=== PATIENT | female | born 1980 | race Caucasian/White ===

== ENCOUNTER 2020-03-29 10:46 | Emergency (ER) | payer BC, MEDICAID ==
[~2020-03-29] VITALS: Ht 160 cm; Wt 72.1 kg
[2020-03-29 10:58] VITALS: BP_SYST 124
[2020-03-29] MEDS ORDERED: DIPH-TET-PERTUS Vaccine 0.5 ML VIAL (ADACEL) I.M. ONE (11:15)
[2020-03-29] MEDS ORDERED: AMOXICILLIN/CLAVULANATE POTASSIUM 875 MG TABLET PO ONE (11:15)
[2020-03-29] MEDS ORDERED: HYDROcodone/ACETAMIN 5-325 MG TAB (NORCO/ VICODIN) PO ONE (11:15)
[2020-03-29] MEDS ORDERED: LIDOCAINE 1% 10 MG/ML, 20 ML MDV INJ ONE (11:30)
[2020-03-29] MEDS ORDERED: BACITRACIN/POLYMYXIN B SULFATE 30 GM TOPICAL OINT. TP SCH (11:45)
[2020-03-29] MEDS ORDERED: BACITRACIN/POLYMYXIN B SULFATE 30 GM TOPICAL OINT. TP ONE (12:00)
[2020-03-29 12:01] VITALS: BP_SYST 124
[2020-03-29] MEDS ORDERED: BACITRACIN 1 GM OINT TP ONE (12:13)
[2020-03-30] MEDS ORDERED: BACITRACIN/POLYMYXIN B SULFATE 30 GM TOPICAL OINT. TP SCH (09:00)
== END 2020-03-29 12:02 | disposition home or self-care (01) ==
LOC: SED 10:46
DX: S01.111A Laceration without foreign body of right eyelid and periocular area, initial encounter (principal); W54.0XXA Bitten by dog, initial encounter; Y93.89 Activity, other specified; Y92.89 Other specified places as the place of occurrence of the external cause; Y99.8 Other external cause status
CPT/HCPCS: 12011; 90471; 90715; 99283; J2001

== ENCOUNTER 2020-10-24 13:18 | Emergency (ER) | payer BC ==
[~2020-10-24] VITALS: Ht 160 cm; Wt 74.8 kg
[2020-10-24 13:37] VITALS: BP_SYST 131
[2020-10-24 15:00] VITALS: BP_SYST 128
== END 2020-10-24 15:00 | disposition home or self-care (01) ==
LOC: SED 13:18
DX: M79.662 Pain in left lower leg (principal)
CPT/HCPCS: 93971; 99284

== ENCOUNTER 2022-04-18 16:05 | Emergency (ER) | payer BC ==
[~2022-04-18] VITALS: Ht 160 cm; Wt 74.8 kg
[2022-04-18 16:16] VITALS: BP_SYST 127
[2022-04-18] MEDS ORDERED: ONDANSETRON HCL 4 MG/2 ML VIAL IVP ONE (17:30)
[2022-04-18] MEDS ORDERED: NACL 0.9% 1,000 ML IV ONE (17:30)
[2022-04-18] MEDS ORDERED: MORPHINE 4 MG INJ. 4 MG/ML VIAL IVP ONE (17:30)
[2022-04-18 18:01] LABS: BASOPHILS # (AUTO) 0.1 K/uL (0.0-0.2); BASOPHILS % (AUTO) 0.5 % (0.0-2.0); EOSINOPHILS # (AUTO) 0.1 K/uL (0.0-0.4); EOSINOPHILS % (AUTO) 0.8 % (0.0-4.0); HEMOGLOBIN 14.3 g/dL (12.0-16.0); LYMPHOCYTES # (AUTO) 1.7 K/uL (1.0-5.5); LYMPHOCYTES % (AUTO) 16.9 % (20.5-51.5); MEAN CORPUSCULAR HEMOGLOBIN 32 pg (27-31); MEAN CORPUSCULAR HGB CONC 35 % (32-36); MEAN CORPUSCULAR VOLUME 92 fL (79.0-98.0); MONOCYTES # (AUTO) 0.5 K/uL (0.0-1.0); MONOCYTES % (AUTO) 4.9 % (1.7-9.3); NEUTROPHILS # (AUTO) 7.8 K/uL (1.8-7.7); NEUTROPHILS % (AUTO) 76.9 % (40.0-70.0); PLATELET COUNT (AUTO) 316 K/uL (130-430); RED BLOOD CELL COUNT(AUTO) 4.47 MIL/uL (4.2-6.2); RED CELL DISTRIBUTION WIDTH 13.4 % (9.0-15.0); WHITE BLOOD COUNT (AUTO) 10.1 K/uL (4.8-10.8)
[2022-04-18 18:11] LABS: CALCIUM 9.1 mg/dL (8.4-11.0); CREATININE 0.83 mg/dL (0.55-1.30); POTASSIUM 3.4 mmol/L (3.5-5.1)
[2022-04-18 18:16] LABS: ALBUMIN 4.1 g/dL (3.4-4.8); TOTAL BILIRUBIN 0.2 mg/dL (0.0-1.0)
[2022-04-18] MEDS ORDERED: DICY10CA13 PO (19:43)
[2022-04-18] MEDS ORDERED: ANT30 PO (19:43)
[2022-04-18] MEDS ORDERED: SIME80TA15 PO (19:43)
[2022-04-18] MEDS ORDERED: FAMO40TA71 PO (19:43)
[2022-04-18] MEDS ORDERED: MAG HYDROX/AL HYDROX/SIMETH 30 ML, DICYCLOMINE HCL 20 MG, LIDOCAINE VISCOUS 2% 15ML (PO... PO ONE ×3 (20:00)
== END 2022-04-18 20:10 | disposition home or self-care (01) ==
LOC: SED 16:05
DX: K29.70 Gastritis, unspecified, without bleeding (principal); R10.13 Epigastric pain; Z79.899 Other long term (current) drug therapy
CPT/HCPCS: 99284; 74176; 96374; 96375; 80053; 85025; 36415; 76376; 81025; J2001; J2405; J2270

== ENCOUNTER 2022-11-02 15:06 | Emergency (ER) | payer BC ==
[~2022-11-02] VITALS: Ht 160 cm; Wt 73.9 kg
[2022-11-02 15:06] VITALS: BP_SYST 119
[~2022-11-02 15:06] MED LIST: ANT30 PO; DICY10CA13 PO; FAMO40TA71 PO; SIME80TA15 PO
--- NOTE | 2022-11-02 15:10 | NUR ---
Patient triaged and placed in waiting room. VSS and patient appears in no acute distress at this time. Accompanied by SELF, awaiting available bed, and MD notified of need for MSE.
--- NOTE | 2022-11-02 15:22 | NUR ---
PT STATES THAT SHE HAD LAPAROSCOPIC LINX REMOVAL ON 10/06, STILL WITH PAIN TO RIGHT LOWER ABD AREA. SURGERY PERFORMED AT [facility].
--- NOTE | 2022-11-02 15:25 | NUR ---
DR AVILA OUT TO TRIAGE ROOM FOR EVALUATION
[2022-11-02 16:07] LABS: BASOPHILS % (AUTO) 0.6 % (0.0-2.0); EOSINOPHILS # (AUTO) 0.2 K/uL (0.0-0.4); HEMATOCRIT 36.8 % (36-48); HEMOGLOBIN 12.3 g/dL (12.0-16.0); LYMPHOCYTES # (AUTO) 2.4 K/uL (1.0-5.5); LYMPHOCYTES % (AUTO) 30.2 % (20.5-51.5); MEAN CORPUSCULAR HEMOGLOBIN 32 pg (27-31); MEAN CORPUSCULAR HGB CONC 34 % (32-36); MEAN CORPUSCULAR VOLUME 94 fL (79.0-98.0); MONOCYTES # (AUTO) 0.6 K/uL (0.0-1.0); MONOCYTES % (AUTO) 7.8 % (1.7-9.3); NEUTROPHILS # (AUTO) 4.7 K/uL (1.8-7.7); NEUTROPHILS % (AUTO) 59.4 % (40.0-70.0); PLATELET COUNT (AUTO) 270 K/uL (130-430); RED CELL DISTRIBUTION WIDTH 13.5 % (9.0-15.0); WHITE BLOOD COUNT (AUTO) 7.8 K/uL (4.8-10.8)
[2022-11-02 16:18] LABS: ALBUMIN 3.6 g/dL (3.4-4.8); CALCIUM 8.4 mg/dL (8.4-11.0); CREATININE 0.97 mg/dL (0.55-1.30); TOTAL BILIRUBIN 0.3 mg/dL (0.0-1.0)
[2022-11-02 16:23] LABS: BILIRUBIN,URINE NEGATIVE (NEGATIVE); BLOOD, URINE 2+ (NEGATIVE); CLARITY/URINE CLEAR (CLEAR); COLOR,URINE YELLOW (YELLOW); GLUCOSE,URINE NEGATIVE (NEGATIVE); KETONES,URINE NEGATIVE (NEGATIVE); LEUKOCYTE ESTERASE ,URINE NEGATIVE (NEGATIVE); NITRITE, URINE NEGATIVE (NEGATIVE); PROTEIN URINE NEGATIVE (NEGATIVE); UROBILINOGEN,URINE 0.2 (0.2-1.0)
[2022-11-02 16:38] LABS: BACTERIA,URINE None Seen /HPF (None Seen); MUCUS,URINE None Seen /LPF (None Seen); WBC,URINE NONE SEEN /HPF (0-3)
[2022-11-02] MEDS ORDERED: KETOROLAC TROMETHAMINE 60 MG/2 ML VIAL IM ONE (16:45)
--- NOTE | 2022-11-02 16:57 | NUR ---
Pt medicated for pain as ordered, well tolerated
[2022-11-02] MEDS ORDERED: TRAM50TA2 PO (17:35)
[2022-11-02] MEDS ORDERED: OXYC-128 PO (17:36)
[2022-11-02 18:14] VITALS: BP_SYST 119
--- NOTE | 2022-11-02 18:16 | NUR ---
Patient given written and verbal discharge instructions and verbalizes understanding. ER MD discussed with patient the results and treatment provided. Patient in stable condition. ID arm band removed. Rx of Oxycodone given. Patient educated on pain management and to follow up with PMD. Pain Scale 3/10 Opportunity for questions provided and answered. Medication side effect fact sheet provided.
== END 2022-11-02 18:15 | disposition home or self-care (01) ==
LOC: SED 15:06
DX: K57.90 Diverticulosis of intestine, part unspecified, without perforation or abscess without bleeding (principal); R10.31 Right lower quadrant pain; R35.0 Frequency of micturition; R39.15 Urgency of urination; Z79.899 Other long term (current) drug therapy
CPT/HCPCS: 99285; 74176; 80053; 81000; 83690; 85025; 36415; 76376; 81025; 96372; J1885

== ENCOUNTER 2023-10-27 13:01 | Emergency (ER) | payer BC ==
[~2023-10-27] VITALS: Ht 157.5 cm; Wt 60.3 kg
[~2023-10-27 13:01] MED LIST changes: +DICY-14 PO; -DICY10CA13 PO; +OXYC-128 PO
[2023-10-27 13:07] VITALS: BP_SYST 126; PULSE 88; RESP 18; TEMP 98.3; O2SAT 98
[2023-10-27 14:02] LABS: BILIRUBIN,URINE NEGATIVE (NEGATIVE); CLARITY/URINE CLEAR (CLEAR); COLOR,URINE YELLOW (YELLOW); GLUCOSE,URINE NEGATIVE (NEGATIVE); KETONES,URINE NEGATIVE (NEGATIVE); LEUKOCYTE ESTERASE ,URINE TRACE (NEGATIVE); NITRITE, URINE NEGATIVE (NEGATIVE); PROTEIN URINE NEGATIVE (NEGATIVE)
[2023-10-27 14:15] LABS: BLOOD, URINE TRACE (NEGATIVE)
[2023-10-27 14:16] LABS: BACTERIA,URINE None Seen /HPF (None Seen); URINE AMORPHOUS PHOSPHATES 1+ /HPF (None Seen)
[2023-10-27 14:16] LABS: BASOPHILS % (AUTO) 0.6 % (0.0-2.0); EOSINOPHILS # (AUTO) 0.1 K/uL (0.0-0.4); EOSINOPHILS % (AUTO) 0.9 % (0.0-4.0); HEMATOCRIT 38.1 % (36-48); HEMOGLOBIN 13.2 g/dL (12.0-16.0); LYMPHOCYTES # (AUTO) 1.7 K/uL (1.0-5.5); LYMPHOCYTES % (AUTO) 23.9 % (20.5-51.5); MEAN CORPUSCULAR HEMOGLOBIN 33 pg (27-31); MEAN CORPUSCULAR HGB CONC 35 % (32-36); MEAN CORPUSCULAR VOLUME 94 fL (79.0-98.0); MONOCYTES # (AUTO) 0.5 K/uL (0.0-1.0); MONOCYTES % (AUTO) 7.3 % (1.7-9.3); NEUTROPHILS # (AUTO) 4.7 K/uL (1.8-7.7); NEUTROPHILS % (AUTO) 67.3 % (40.0-70.0); PLATELET COUNT (AUTO) 281 K/uL (130-430); RED BLOOD CELL COUNT(AUTO) 4.05 MIL/uL (4.2-6.2); RED CELL DISTRIBUTION WIDTH 13.1 % (9.0-15.0)
[2023-10-27 14:23] LABS: CALCIUM 8.1 mg/dL (8.4-11.0); CREATININE 0.65 mg/dL (0.55-1.30); POTASSIUM 3.9 mmol/L (3.5-5.1)
[2023-10-27] MEDS ORDERED: METR-154 PO (17:12)
[2023-10-27] MEDS ORDERED: DOXY100C5 PO (17:12)
[2023-10-27 17:21] VITALS: BP_SYST 105; PULSE 91; RESP 18; TEMP 98.4; O2SAT 98
== END 2023-10-27 17:20 | disposition home or self-care (01) ==
LOC: SED 13:01
DX: N89.8 Other specified noninflammatory disorders of vagina (principal); Z79.899 Other long term (current) drug therapy
CPT/HCPCS: 36415; 80048; 81000; 81001; 81015; 81025; 85025; 87210; 99284